=== PATIENT | female | born 1990 | race Caucasian/White ===

== ENCOUNTER → 2017-02-06 | Outpatient (CLI) | payer BC | END | disposition home or self-care (01) | LOC: CFH 13:47 | PROVIDERS: ATTEND Family Medicine | DX: M25.531 Pain in right wrist (principal) ==

== ENCOUNTER 2019-06-20 09:35 | Emergency (ER) | payer BC, OTHER ==
[~2019-06-20] VITALS: Ht 165.1 cm; Wt 79.4 kg
[2019-06-20 09:40] VITALS: BP 113/84
[2019-06-20] MEDS ORDERED: IBUPROFEN 600 MG TABLET PO ONE (10:00)
[2019-06-20] MEDS ORDERED: IBUPROFEN 600 MG TABLET ONE (10:11)
--- NOTE | 2019-06-20 10:54 | NUR ---
PT REFUSED KNEE IMMOBILIZER AND CRUTCHES SHE HAS THEM AT HOME.
== END 2019-06-20 11:05 | disposition home or self-care (01) ==
LOC: ED 10:59
DX: S83.91XA Sprain of unspecified site of right knee, initial encounter (principal); W18.30XA Fall on same level, unspecified, initial encounter; Y93.89 Activity, other specified; Y92.830 Public park as the place of occurrence of the external cause; Y99.8 Other external cause status
CPT/HCPCS: 99283